=== PATIENT | male | born 1985 | race Caucasian/White ===

== ENCOUNTER 2022-02-02 19:14 | Emergency (ER) | payer MEDICAID ==
[~2022-02-02] VITALS: Ht 162.6 cm; Wt 90.7 kg
[2022-02-02 19:49] VITALS: BP_SYST 128
--- NOTE | 2022-02-02 20:26 | NUR ---
Placed in room 01 . Placed on force variation equipment tender, blood pressure machine and pulse oximeter. To gown for exam. Side rails up.
--- NOTE | 2022-02-02 20:34 | NUR ---
First contact. Pt placed on monitor. C/o right leg pain 04/10.
[2022-02-02] MEDS ORDERED: KETOROLAC TROMETHAMINE 30 MG VIAL IVP ONE (21:00)
[2022-02-02 21:11] LABS: BASOPHILS # (AUTO) 0.1 K/uL (0.0-0.2); BASOPHILS % (AUTO) 0.8 % (0.0-2.0); EOSINOPHILS # (AUTO) 0.1 K/uL (0.0-0.4); EOSINOPHILS % (AUTO) 0.9 % (0.0-4.0); HEMATOCRIT 44.4 % (36-54); HEMOGLOBIN 15.5 g/dL (14.0-18.0); LYMPHOCYTES # (AUTO) 2.1 K/uL (1.0-5.5); LYMPHOCYTES % (AUTO) 21.6 % (20.5-51.5); MEAN CORPUSCULAR HEMOGLOBIN 30 pg (27-31); MEAN CORPUSCULAR HGB CONC 35 % (32-36); MEAN CORPUSCULAR VOLUME 85 fL (79.0-98.0); MONOCYTES # (AUTO) 1.4 K/uL (0.0-1.0); NEUTROPHILS # (AUTO) 6.2 K/uL (1.8-7.7); NEUTROPHILS % (AUTO) 62.7 % (40.0-70.0); PLATELET COUNT (AUTO) 248 K/uL (130-430); RED BLOOD CELL COUNT(AUTO) 5.23 MIL/uL (4.2-6.2); RED CELL DISTRIBUTION WIDTH 14.1 % (9.0-15.0); WHITE BLOOD COUNT (AUTO) 9.9 K/uL (4.8-10.8)
[2022-02-02] MEDS ORDERED: iohexoL 350 mgI/mL, 100 ML INFUS..BTL IV ONE (21:28)
[2022-02-02 21:39] LABS: ANION GAP 8 (5-15); CALCIUM 8.7 mg/dL (8.4-11.0); CHLORIDE 104 mmol/L (98-107); CREATININE 1.37 mg/dL (0.55-1.30); GLUCOSE 133 mg/dL (70-99); POTASSIUM 3.1 mmol/L (3.5-5.1); SODIUM SERUM 140 mmol/L (136-145); UREA NITROGEN, BLOOD 20 mg/dL (8-21)
[2022-02-02 21:48] LABS: ALANINE AMINOTRANSFERASE 104 U/L (12-78); ALBUMIN 3.7 g/dL (3.4-4.8); ASPARTATE AMINOTRANSFERASE 54 U/L (10-37); GFR AFRICAN AMERICAN 76 mL/min (>90); TOTAL BILIRUBIN 0.4 mg/dL (0.0-1.0)
--- NOTE | 2022-02-02 21:48 | NUR ---
Pt back from CT at this time.
[2022-02-02] MEDS ORDERED: HYDROcodone/ACETAMIN 5-325 MG TAB (NORCO/ VICODIN) PO ONE (22:15)
[2022-02-02 22:31] LABS: PROTHROMBIN TIME 10.2 SECS (9.5-12.5)
[2022-02-02] MEDS ORDERED: ACETAMINOPHEN 500 MG TABLET PO ONE ×2 (22:45)
[2022-02-02] MEDS ORDERED: APIX5TAB PO (22:56)
[2022-02-02] MEDS ORDERED: PRED20TA PO (22:56)
[2022-02-02] MEDS ORDERED: CYCL10TA24 PO (22:56)
[2022-02-02] MEDS ORDERED: CYCLOBENZAPRINE HCL 10 MG TABLET (FLEXERIL) PO ONE (23:00)
[2022-02-02 23:10] VITALS: BP_SYST 115
[2022-02-02] MEDS ORDERED: APIXABAN 2.5 MG TABLET PO ONE (23:15)
[2022-02-02] MEDS ORDERED: APIXABAN 2.5 MG TABLET ONE (23:32)
--- NOTE | 2022-02-02 23:35 | NUR ---
Patient given written and verbal discharge instructions and verbalizes understanding. ER MD discussed with patient the results and treatment provided. Patient in stable condition. ID arm band removed. IV catheter removed intact and dressing applied, no active bleeding.Rx of Eliquis, Flexeril, and prednisone given. Patient educated on pain management and to follow up with PMD. Opportunity for questions provided and answered. Medication side effect fact sheet provided.
== END 2022-02-02 23:35 | disposition home or self-care (01) ==
LOC: SED 19:14
DX: I82.411 Acute embolism and thrombosis of right femoral vein (principal)
CPT/HCPCS: 99285; 96374; 71275; 93971; 71045; 80053; 83880; 85025; 85379; 85610; 85730; 84484; 36415; 93005; 76376; Q9967; J1885